=== PATIENT | male | born 1990 | race Caucasian/White ===

== ENCOUNTER 2020-11-28 19:03 | Emergency (ER) | payer BC, MEDICAID, SELFPAY ==
[~2020-11-28] VITALS: Ht 182.9 cm; Wt 113.6 kg
[2020-11-28 19:04] VITALS: BP 146/88
== END 2020-11-28 21:10 | disposition left against medical advice (07) ==
LOC: M ED 19:03
DX: Z53.20 Procedure and treatment not carried out because of patient's decision for unspecified reasons (principal)